=== PATIENT | male | born 1985 | race Caucasian/White ===

== ENCOUNTER 2016-06-28 23:51 | Observation (INO) | payer MEDICARE, OTHER ==
[~2016-06-28] VITALS: Ht 185.4 cm; Wt 104.3 kg
[~2016-06-28 23:51] MED LIST: HYDROCODON-ACE1 EAC2 PO; KLONOPIN TAB 00.5 MG PO; LASIX20 MG PO; LEVAQUIN TAB 2250 MG PO; LOPRESSOR 25 MG25 MG PO; LORTAB 7.5-3251 EACH PO; NORVASC 5 MG TAB5 MG PO; TOPAMAX50 MG PO; XARELTO15 MG PO; XARELTO20 MG PO; ZESTORETIC 20-1 EACH PO
[2016-06-29 00:18] LABS: HEMOGLOBIN 14.9 gm/dl (14.0-17.5); RED BLOOD COUNT 5.21 M/UL (4.20-5.50); WHITE BLOOD COUNT 9.8 K/UL (4.5-11.0)
[2016-06-29 00:27] LABS: BUN/CREATININE RATIO 12 (0-10)
[2016-06-29] MEDS ORDERED: CATAPRES 0.1MG0.1 MG PO (09:52)
[2016-06-29] MEDS ORDERED: CARDURA 2MG TAB2 MG PO (09:53)
== END 2016-06-30 14:30 | disposition left against medical advice (07) ==
LOC: ER1 23:51 → ZEROF 06-29 05:16 → MED SURG 4 06-29 13:23
PROVIDERS: Emergency Medicine; ADMIT Internal Medicine
DX: R07.89 Other chest pain (principal); I16.0 Hypertensive urgency; I10 Essential (primary) hypertension; I25.10 Atherosclerotic heart disease of native coronary artery without angina pectoris; R79.89 Other specified abnormal findings of blood chemistry; F17.220 Nicotine dependence, chewing tobacco, uncomplicated; Z86.711 Personal history of pulmonary embolism; Z79.01 Long term (current) use of anticoagulants; Z79.82 Long term (current) use of aspirin; Z79.891 Long term (current) use of opiate analgesic; Z79.899 Other long term (current) drug therapy; Z98.890 Other specified postprocedural states; M62.82 Rhabdomyolysis
CPT/HCPCS: 36415; 70450; 71020; 80053; 80307; 82550; 82553; 83690; 83874; 83880; 84484; 85025; 85379; 85610; 85730; 93005; 96361; 96365; 96375; 96376; 99291; G0378; J2270

== ENCOUNTER 2016-07-22 11:49 | Inpatient (IN) | payer MEDICARE, OTHER ==
[~2016-07-22] VITALS: Ht 182.9 cm; Wt 102.5 kg
[~2016-07-22 11:49] MED LIST changes: +CARDURA 2MG TAB2 MG PO; +CATAPRES 0.1MG0.1 MG PO
[2016-07-22 12:24] LABS: HEMOGLOBIN 14.3 gm/dl (14.0-17.5); RED BLOOD COUNT 4.89 M/UL (4.20-5.50)
[2016-07-22 12:44] LABS: BUN/CREATININE RATIO 14 (0-10)
[2016-07-22] MEDS ORDERED: LORTAB 5-325 M1 EACH PO (21:01)
[2016-07-23 03:23] LABS: HEMOGLOBIN 12.7 gm/dl (14.0-17.5)
[2016-07-23 03:29] LABS: RED BLOOD COUNT 4.35 M/UL (4.20-5.50); WHITE BLOOD COUNT 7.4 K/UL (4.5-11.0)
[2016-07-23 03:57] LABS: BUN/CREATININE RATIO 16 (0-10)
[2016-07-23] MEDS ORDERED: NEURONTIN600 MG PO (22:26)
== END 2016-07-23 14:35 | disposition home or self-care (01) | DRG 305 ==
LOC: ER1 11:49 → PROG CARE 13:40 → ZEROF 13:40 → M/S 20:12 → PROG CARE 20:30
PROVIDERS: Preventive Medicine Occupational Medicine; ADMIT Hospitalist
DX: I16.0 Hypertensive urgency (principal); I16.1 Hypertensive emergency; R07.89 Other chest pain; I25.10 Atherosclerotic heart disease of native coronary artery without angina pectoris; Z86.718 Personal history of other venous thrombosis and embolism; Z79.01 Long term (current) use of anticoagulants; G89.4 Chronic pain syndrome; M54.9 Dorsalgia, unspecified; F41.9 Anxiety disorder, unspecified; L40.9 Psoriasis, unspecified; Z79.891 Long term (current) use of opiate analgesic; Z79.899 Other long term (current) drug therapy; Z82.49 Family history of ischemic heart disease and other diseases of the circulatory system; R74.8 Abnormal levels of other serum enzymes; Z79.82 Long term (current) use of aspirin
CPT/HCPCS: 36415; 71010; 80048; 80053; 80307; 81001; 82550; 82553; 83735; 83874; 83880; 84484; 85025; 93005; 96374; 96375; 99285; J2270; J2405; J7030; J7040

== ENCOUNTER 2016-07-29 14:23 | Emergency (ER) | payer MEDICARE, OTHER ==
[~2016-07-29 14:23] MED LIST changes: +LORTAB 5-325 M1 EACH PO; +NEURONTIN600 MG PO
[2016-07-29 16:36] LABS: RED BLOOD COUNT 5.03 M/UL (4.20-5.50); WHITE BLOOD COUNT 8.7 K/UL (4.5-11.0)
[2016-07-29 16:37] LABS: HEMOGLOBIN 14.8 gm/dl (14.0-17.5)
[2016-07-29 16:57] LABS: BUN/CREATININE RATIO 13 (0-10)
== END 2016-07-29 17:10 | disposition left against medical advice (07) ==
LOC: ER1 14:23
PROVIDERS: Radiology Radiation Oncology
DX: R07.89 Other chest pain (principal); I10 Essential (primary) hypertension; E78.5 Hyperlipidemia, unspecified; Z79.01 Long term (current) use of anticoagulants; Z79.891 Long term (current) use of opiate analgesic; Z79.899 Other long term (current) drug therapy
CPT/HCPCS: 36415; 71010; 80053; 82550; 82553; 83874; 84484; 85025; 93005; 96374; 96375; 99285; J2270; J2405

== ENCOUNTER 2016-07-31 02:09 | Emergency (ER) | payer MEDICARE, OTHER ==
[2016-07-31 02:41] LABS: HEMOGLOBIN 14.5 gm/dl (14.0-17.5); RED BLOOD COUNT 4.96 M/UL (4.20-5.50); WHITE BLOOD COUNT 10.1 K/UL (4.5-11.0)
[2016-07-31 02:53] LABS: BUN/CREATININE RATIO 8 (0-10)
== END 2016-07-31 03:30 | disposition left against medical advice (07) ==
LOC: ER1 02:09
PROVIDERS: Family Medicine
DX: R06.02 Shortness of breath (principal); R51 Headache; Z77.22 Contact with and (suspected) exposure to environmental tobacco smoke (acute) (chronic)
CPT/HCPCS: 36415; 36600; 71020; 80053; 82550; 82553; 82805; 83874; 84484; 85025; 85610; 93005; 99285

== ENCOUNTER 2016-08-23 12:25 | Emergency (ER) | payer OTHER, MEDICARE | END 2016-08-23 17:25 | disposition home or self-care (01) | LOC: ER1 12:25 | DX: M54.5 Low back pain (principal); R51 Headache; J44.9 Chronic obstructive pulmonary disease, unspecified; J45.909 Unspecified asthma, uncomplicated; F17.220 Nicotine dependence, chewing tobacco, uncomplicated; Z86.711 Personal history of pulmonary embolism | CPT/HCPCS: 70450; 72100; 81001; 99284 ==

== ENCOUNTER 2020-03-13 09:14 | Emergency (ER) | payer MEDICARE, OTHER ==
[~2020-03-13 09:14] MED LIST changes: +AMOX TR-K CLV1 EAC4 PO; +ASPIR-LOW81 MG PO; +ATORVASTATIN CA20 MG PO; +ATORVASTATIN CA40 MG PO; +BACTROBAN OINT22 GM EXT; +CARVEDILOL12.5 MG PO; +CARVEDILOL25 MG PO; +CATAPRES0.2 MG PO; +CLEOCIN HCL300 MG PO; +CLONIDINE HCL0.2 MG PO; +CLONIDINE1 EACH TOP; +CLOTRIMAZOLE-BE45 GM TOP; +COREG 25MG TAB25 MG PO; +ECOTRIN81 MG PO; +FAMOTIDINE20 MG PO; +FLEXERIL 10 MG10 MG PO; +GABAPENTIN600 MG PO; +HYDRALAZINE HCL50 MG PO; +HYDROCODON-ACE1 EAC4 PO; +IBUPROFEN800 MG PO; +IMDUR ER TAB 3030 MG PO; +KEFLEX CAP 500500 MG PO; +KETOCONAZOLE120 ML TOP; +LABETALOL HCL200 MG PO; +LISINOPRIL10 MG PO; +LISINOPRIL40 MG PO; +LOPRESSOR50 MG PO; -LORTAB 5-325 M1 EACH PO; +METOPROL PO; +NEURONTIN800 MG PO; +NITROSTAT0.4 MG SL; +NIZORAL 2% CREA15 GM TOP; +NORCO 7.5-3251 EACH PO; +OMNICEF 300 MG300 MG PO; +ONDANSETRON ODT4 MG PO; +PAROXETINE HCL20 MG PO; +PERCOCET 5/325 T1 EA PO; +POTASSIUM CHLO20 ME2 PO; +ROBITUSSIN AC480 ML PO; +TESSALON PERLE100 MG PO; +TOPAMAX 100 MG100 MG PO; +TOPROL XL25 MG PO; +TYLENOL325 MG PO; +VENTOLIN HFA 66.7 GM INH; +VIBRAMYCIN100 MG PO; +WARFARIN SODIUM3 MG PO; +XARELTO 10 MG T10 MG PO; +XARELTO 15 MG T15 MG PO; +XARELTO10 MG PO; -ZESTORETIC 20-1 EACH PO; +ZESTRIL40 MG PO
== END 2020-03-13 09:45 | disposition left against medical advice (07) ==
LOC: ER1 09:14
DX: R07.9 Chest pain, unspecified (principal); R06.02 Shortness of breath; R53.1 Weakness; Z53.21 Procedure and treatment not carried out due to patient leaving prior to being seen by health care provider
CPT/HCPCS: 93005

== ENCOUNTER 2020-07-11 08:38 | Emergency (ER) | payer MEDICARE, OTHER | END 2020-07-11 12:25 | disposition left against medical advice (07) | LOC: ER1 08:38 | DX: Z53.21 Procedure and treatment not carried out due to patient leaving prior to being seen by health care provider (principal) | CPT/HCPCS: 93005 ==

== ENCOUNTER 2020-09-20 14:00 | Emergency (ER) | payer MEDICARE, OTHER | END 2020-09-20 16:00 | disposition left against medical advice (07) | LOC: ER1 14:00 | DX: Z53.21 Procedure and treatment not carried out due to patient leaving prior to being seen by health care provider (principal) | CPT/HCPCS: 93005 ==

== ENCOUNTER 2020-09-29 02:57 | Emergency (ER) | payer MEDICARE, OTHER ==
[2020-09-29 04:15] LABS: HEMOGLOBIN 16.6 gm/dl (14.0-17.5); RED BLOOD COUNT 5.47 M/UL (4.20-5.50); WHITE BLOOD COUNT 17.7 K/UL (4.5-11.0)
[2020-09-29 04:28] LABS: BUN/CREATININE RATIO 15 (0-10)
== END 2020-09-29 05:22 | disposition left against medical advice (07) ==
LOC: ER1 02:57
PROVIDERS: Physician Assistant
DX: I10 Essential (primary) hypertension (principal); I25.10 Atherosclerotic heart disease of native coronary artery without angina pectoris
CPT/HCPCS: 36415; 71045; 71275; 80053; 82550; 82553; 83690; 83735; 83874; 83880; 84484; 85025; 85610; 85730; 93005; 96374; 96375; 96376; 99284; J0360; J2270; J2550; Q9967

== ENCOUNTER 2020-11-27 16:41 | Emergency (ER) | payer MEDICARE, OTHER ==
[2020-11-27 17:41] LABS: HEMOGLOBIN 14.5 gm/dl (14.0-17.5); RED BLOOD COUNT 4.72 M/UL (4.20-5.50); WHITE BLOOD COUNT 10.8 K/UL (4.5-11.0)
[2020-11-27 18:03] LABS: BUN/CREATININE RATIO 14 (0-10)
== END 2020-11-27 19:42 | disposition left against medical advice (07) ==
LOC: ER1 16:41 → CDU 19:00 → ER1 19:42
PROVIDERS: Emergency Medicine
DX: R04.89 Hemorrhage from other sites in respiratory passages (principal); Z86.711 Personal history of pulmonary embolism; Z79.1 Long term (current) use of non-steroidal anti-inflammatories (NSAID); Z88.5 Allergy status to narcotic agent
CPT/HCPCS: 80053; 82550; 82553; 83874; 84484; 85025; 85610; 93005; 99284; Q9967

== ENCOUNTER 2021-03-02 23:06 | Emergency (ER) | payer MEDICARE, OTHER | END 2021-03-03 01:21 | disposition left against medical advice (07) | LOC: ER1 23:06 | DX: Z53.21 Procedure and treatment not carried out due to patient leaving prior to being seen by health care provider (principal) ==

== ENCOUNTER 2021-04-11 11:03 | Emergency (ER) | payer MEDICARE, OTHER ==
[2021-04-11 12:26] LABS: HEMOGLOBIN 15.8 gm/dl (14.0-17.5); RED BLOOD COUNT 5.48 M/UL (4.20-5.50); WHITE BLOOD COUNT 9.7 K/UL (4.5-11.0)
[2021-04-11 12:52] LABS: BUN/CREATININE RATIO 16 (0-10)
== END 2021-04-11 13:20 | disposition home or self-care (01) ==
LOC: ER1 11:03
PROVIDERS: Physician Assistant
DX: M54.50 Low back pain, unspecified (principal); R04.2 Hemoptysis; I10 Essential (primary) hypertension; Z79.01 Long term (current) use of anticoagulants; W01.0XXA Fall on same level from slipping, tripping and stumbling without subsequent striking against object, initial encounter
CPT/HCPCS: 71045; 80053; 82550; 82553; 83874; 84484; 85025; 85379; 93005; 99284; Q9967

== ENCOUNTER 2021-05-29 11:05 | Emergency (ER) | payer MEDICARE, OTHER ==
[~2021-05-29 11:05] MED LIST changes: +ALPRAZOLAM0.5 MG PO; +ENOXAPARIN120 MG/0.8 SC; -GABAPENTIN600 MG PO; +GABAPENTIN800 MG PO; +HYGROTON TAB 2525 MG PO; +ISOSORBIDE MONO30 MG PO; +NORVASC5 MG PO; +PROAIR HFA8.5 GM INH; +PROTONIX 40 MG40 M1 PO; -WARFARIN SODIUM3 MG PO; +WARFARIN SODIUM5 MG PO
[2021-05-29 13:11] LABS: HEMOGLOBIN 15.4 gm/dl (14.0-17.5); RED BLOOD COUNT 5.02 M/UL (4.20-5.50); WHITE BLOOD COUNT 7.7 K/UL (4.5-11.0)
[2021-05-29 14:46] LABS: BUN/CREATININE RATIO 20 (0-10)
== END 2021-05-29 16:34 | disposition left against medical advice (07) ==
LOC: ER1 11:05
PROVIDERS: Physician Assistant
DX: E87.1 Hypo-osmolality and hyponatremia (principal); R79.0 Abnormal level of blood mineral; I27.82 Chronic pulmonary embolism; R77.8 Other specified abnormalities of plasma proteins; I10 Essential (primary) hypertension; Z91.19 Patient's noncompliance with other medical treatment and regimen
CPT/HCPCS: 71045; 80053; 82550; 82553; 83880; 84484; 85025; 85610; 85652; 93005; 93971; 96374; 99283; J0360; Q9967

== ENCOUNTER 2021-06-04 03:36 | Emergency (ER) | payer MEDICARE, OTHER ==
[~2021-06-04] VITALS: Ht 182.9 cm; Wt 108.9 kg
[2021-06-04 04:13] LABS: HEMOGLOBIN 14.4 gm/dl (14.0-17.5); RED BLOOD COUNT 4.78 M/UL (4.20-5.50); WHITE BLOOD COUNT 13.6 K/UL (4.5-11.0)
[2021-06-04 04:39] LABS: BUN/CREATININE RATIO 14 (0-10)
== END 2021-06-04 10:30 | disposition left against medical advice (07) ==
LOC: ER1 03:36
PROVIDERS: Physician Assistant
DX: I16.0 Hypertensive urgency (principal); I11.9 Hypertensive heart disease without heart failure; I21.4 Non-ST elevation (NSTEMI) myocardial infarction; I25.10 Atherosclerotic heart disease of native coronary artery without angina pectoris; I42.2 Other hypertrophic cardiomyopathy; F41.9 Anxiety disorder, unspecified; E87.6 Hypokalemia; R77.8 Other specified abnormalities of plasma proteins; K22.9 Disease of esophagus, unspecified; F11.21 Opioid dependence, in remission; Z86.711 Personal history of pulmonary embolism; Z86.718 Personal history of other venous thrombosis and embolism; Z79.01 Long term (current) use of anticoagulants; Z95.5 Presence of coronary angioplasty implant and graft; Z88.5 Allergy status to narcotic agent; Z88.8 Allergy status to other drugs, medicaments and biological substances; Z87.2 Personal history of diseases of the skin and subcutaneous tissue; Z86.79 Personal history of other diseases of the circulatory system; Z79.899 Other long term (current) drug therapy
CPT/HCPCS: 70450; 71045; 80053; 82550; 82553; 83690; 84484; 85025; 85379; 85610; 93005; 99283; G0480; J1650; Q9967

== ENCOUNTER 2021-08-29 15:16 | Inpatient (IN) | payer MEDICARE, OTHER ==
[~2021-08-29] VITALS: Ht 182.9 cm; Wt 107.8 kg
[~2021-08-29 15:16] MED LIST changes: +WARFARIN SODIUM3 MG PO; -WARFARIN SODIUM5 MG PO
[2021-08-29 16:00] LABS: HEMOGLOBIN 16.6 gm/dl (14.0-17.5); RED BLOOD COUNT 5.41 M/UL (4.20-5.50); WHITE BLOOD COUNT 8.8 K/UL (4.5-11.0)
[2021-08-29 16:16] LABS: BUN/CREATININE RATIO 11 (0-10)
[2021-08-30 03:17] LABS: HEMOGLOBIN 15.5 gm/dl (14.0-17.5); RED BLOOD COUNT 5.13 M/UL (4.20-5.50)
[2021-08-30 03:29] LABS: WHITE BLOOD COUNT 12.7 K/UL (4.5-11.0)
[2021-08-30 04:32] LABS: BUN/CREATININE RATIO 15 (0-10)
[2021-08-30] MEDS ORDERED: CATAPRES 0.1MG0.1 MG PO (08:43)
[2021-08-31 03:45] LABS: HEMOGLOBIN 13.8 gm/dl (14.0-17.5); RED BLOOD COUNT 4.63 M/UL (4.20-5.50)
[2021-08-31 03:59] LABS: WHITE BLOOD COUNT 8.9 K/UL (4.5-11.0)
== END 2021-08-31 11:17 | disposition left against medical advice (07) | DRG 305 ==
LOC: ER1 15:16 → PROG CARE 18:36 → CDU 18:36 → PROG CARE 21:04
PROVIDERS: Internal Medicine; Physician Assistant Medical; ADMIT Internal Medicine
DX: I16.1 Hypertensive emergency (principal); N17.9 Acute kidney failure, unspecified; Z20.822 Contact with and (suspected) exposure to COVID-19; I42.2 Other hypertrophic cardiomyopathy; F11.20 Opioid dependence, uncomplicated; I16.9 Hypertensive crisis, unspecified; I10 Essential (primary) hypertension; I25.10 Atherosclerotic heart disease of native coronary artery without angina pectoris; L21.9 Seborrheic dermatitis, unspecified; F41.9 Anxiety disorder, unspecified; J44.9 Chronic obstructive pulmonary disease, unspecified; F17.220 Nicotine dependence, chewing tobacco, uncomplicated; R11.2 Nausea with vomiting, unspecified; M41.9 Scoliosis, unspecified; G89.4 Chronic pain syndrome; Z91.14 Patient's other noncompliance with medication regimen; Z76.5 Malingerer [conscious simulation]; Z86.718 Personal history of other venous thrombosis and embolism; Z79.01 Long term (current) use of anticoagulants; Z86.711 Personal history of pulmonary embolism; Z88.8 Allergy status to other drugs, medicaments and biological substances; Z88.6 Allergy status to analgesic agent; Z82.49 Family history of ischemic heart disease and other diseases of the circulatory system; Z84.89 Family history of other specified conditions; Z56.0 Unemployment, unspecified
CPT/HCPCS: 36415; 70450; 71045; 76705; 80048; 80053; 82550; 82553; 83880; 84484; 85025; 85610; 93005; 96374; 96375; 99285; J0360; J1650; J2270; J2405; Q0177; Q9967